=== PATIENT | female | born 1945 | race African-American/Black ===

== ENCOUNTER 2016-09-27 12:02 | Outpatient (CLI) | payer MEDICARE, BC ==
[2013-05-31 07:19] VITALS: BMI 35.6
[~2016-09-27 12:02] MED LIST: ACETAMINOPHEN500 M1 PO; CALCIUM 600+D T1 TA1 PO; HYDROCHLOROTH12.5 M1 PO; MOBIC7.5 MG PO; OSTEO BI-FLEX1 EAC1 PO; VITAMIN B-12250 MCG PO; VITAMIN D31000 UNIT PO; [UNRECOGNIZED DRUG - OTHER] TP
== END 2016-09-27 13:20 ==
LOC: D.MAMMO 12:02
DX: Z85.3 Personal history of malignant neoplasm of breast (principal)